=== PATIENT | male | born 1940 | race Caucasian/White ===

== ENCOUNTER 2022-05-17 03:41 | Inpatient (IN) | payer MEDICARE ==
[~2022-05-17] VITALS: Ht 177.8 cm; Wt 91.6 kg
[2022-05-17 04:32] LABS: HEMATOCRIT. 40.4 % (42.0-52.0); HEMOGLOBIN. 13.7 g/dL (14.0-18.0); MEAN CORPUSCULAR VOLUME 91.6 fL (80.0-94.0); PLATELET 334 x1000/uL (130-400); RED BLOOD CELL COUNT 4.41 mill/uL (4.7-6.1); RED CELL DISTRIBUTION WIDTH 13.8 % (11.6-14.6)
[2022-05-17 04:38] LABS: CHLORIDE 104 mEq/L (98-107)
[2022-05-17 04:42] LABS: PROTHROMBIN TIME 10.7 sec (9.6-11.0)
[2022-05-17 05:10] LABS: PLATELET ESTIMATE NORMAL
[2022-05-17] MEDS ORDERED: TAMSULOSIN HCL 0.4MG SR CAPSULE PO ONE (05:45)
[2022-05-17] MEDS ORDERED: SODIUM CHLORIDE 0.9% 1,000 ML IV ONE (05:45)
[2022-05-17] MEDS ORDERED: ONDANSETRON HCL 4MG/2ML INJ IV ONE (05:45)
[2022-05-17] MEDS ORDERED: CEFTRIAXONE 1 G PREMIX 50 ML IV ONE (06:00)
[2022-05-17] MEDS ORDERED: DOCUSATE SODIUM 100MG CAPSULE PO PRN (07:00)
[2022-05-17] MEDS ORDERED: KETOROLAC 15MG/ML VIAL IV PRN (07:00)
[2022-05-17] MEDS ORDERED: ZOLPIDEM TARTRATE 5MG TABLET PO PRN (07:00)
[2022-05-17] MEDS ORDERED: CLONIDINE 0.1MG TABLET PO PRN (07:00)
[2022-05-17] MEDS ORDERED: TRAMADOL 50MG TABLET PO PRN (07:00)
[2022-05-17] MEDS ORDERED: NITROGLYCERIN 0.4MG TABLET SL SL PRN (07:00)
[2022-05-17] MEDS ORDERED: MAGNESIUM/ALUMINUM HYDROXIDE/SIMETHICONE 30ML UDC PO PRN (07:00)
[2022-05-17] MEDS ORDERED: ONDANSETRON HCL 4MG/2ML INJ IV PRN (07:00)
[2022-05-17 07:31] LABS: ETHANOL BLOOD < 10 mg/dL; TOTAL IRON BINDING CAPACITY 292 ug/dL (250-450)
[2022-05-17] MEDS ORDERED: NALOXONE HCL 0.4MG/ML VIAL IV PRN (07:45)
[2022-05-17 07:50] LABS: FOLIC ACID (FOLATE) SERUM 11.3 ng/mL (>5.38)
[2022-05-17] MEDS ORDERED: PIPERACILLIN/TAZ 3.375G PREMIX 50 ML IV SCH (08:00)
[2022-05-17 09:30] VITALS: BP_SYST 126; BP_DIAS 25; BP_DIAS 65
[2022-05-17 12:00] VITALS: BP 135/72
[2022-05-17 12:16] LABS: CLARITY URINE CLEAR (CLEAR); COLOR URINE YELLOW (YELLOW); KETONES URINE TRACE (NEGATIVE); LEUKOCYTE ESTERASE URINE NEGATIVE (NEGATIVE); NITRITE URINE NEGATIVE (NEGATIVE); OCCULT BLOOD URINE 1+ (NEGATIVE); PROTEIN URINE NEGATIVE (NEGATIVE); SPECIFIC GRAVITY URINE 1.017 (1.005-1.030); UROBILINOGEN URINE 0.2 E.U./dL (0.2-1.0)
[2022-05-17] MEDS: TAMSULOSIN HCL 0.4MG SR CAPSULE PO SCH (12:24)
[2022-05-17] MEDS: FAMOTIDINE 20MG TABLET PO SCH ×2 (12:24→21:18)
[2022-05-17] MEDS: LISINOPRIL 20MG TABLET PO SCH ×2 (12:24→21:00)
[2022-05-17] MEDS: ENOXAPARIN 40MG/0.4ML SYR SUBCUT SCH (12:25)
[2022-05-17 12:40] LABS: *AMPHETAMINES SCREEN URINE NEGATIVE (NEGATIVE); *BARBITURATES SCREEN URINE NEGATIVE (NEGATIVE); *BENZODIAZEPINES SCREEN URINE NEGATIVE (NEGATIVE); *COCAINE SCREEN URINE NEGATIVE (NEGATIVE); CANNABINOID URINE SCREEN NEGATIVE (NEGATIVE); METHADONE URINE SCREEN NEGATIVE (NEGATIVE); OPIATES URINE SCREEN NEGATIVE (NEGATIVE); PHENCYCLIDINE URINE SCREEN NEGATIVE (NEGATIVE)
[2022-05-17 16:00] VITALS: BP 110/58
[2022-05-17 20:00] VITALS: BP 101/51
[2022-05-17] MEDS: DEXT 5%/LACTATED RINGERS 1,000 ML IV SCH (20:01)
[2022-05-17] MEDS: PIPERACILLIN/TAZOBACTAM 3.375G in DEXT 5% WATER 50ML IV SCH (21:04)
[2022-05-18] VITALS: BP 95/48
[2022-05-18 04:00] VITALS: BP 116/53
[2022-05-18] MEDS: PIPERACILLIN/TAZOBACTAM 3.375G in DEXT 5% WATER 50ML IV SCH ×3 (06:05→21:04)
[2022-05-18 07:22] LABS: BASOPHILS % 0.5 % (0.0-2.0); EOSINOPHILS % 3.1 % (0.0-5.0); HEMATOCRIT. 37.1 % (42.0-52.0); HEMOGLOBIN. 12.4 g/dL (14.0-18.0); LYMPHOCYTES % 12.4 % (20.0-50.0); MEAN PLATELET VOLUME 8.6 fl (7.4-10.4); MONOCYTES % 8.6 % (2.0-8.0); NEUTROPHILS % 75.4 % (40.0-76.0); PLATELET 270 x1000/uL (130-400); RED BLOOD CELL COUNT 3.99 mill/uL (4.7-6.1); RED CELL DISTRIBUTION WIDTH 13.6 % (11.6-14.6)
[2022-05-18 07:29] LABS: CHLORIDE 108 mEq/L (98-107)
[2022-05-18 08:00] VITALS: BP 146/63
[2022-05-18] MEDS: ENOXAPARIN 40MG/0.4ML SYR SUBCUT SCH (08:00)
[2022-05-18] MEDS: TAMSULOSIN HCL 0.4MG SR CAPSULE PO SCH (09:00)
[2022-05-18] MEDS: FAMOTIDINE 20MG TABLET PO SCH ×2 (09:00→21:04)
[2022-05-18] MEDS: LISINOPRIL 20MG TABLET PO SCH ×2 (09:00→21:04)
[2022-05-18] MEDS: DEXT 5%/LACTATED RINGERS 1,000 ML IV SCH ×2 (09:40→23:00)
[2022-05-18 11:53] VITALS: BP 131/61
[2022-05-18] MEDS ORDERED: PROPOFOL 200MG/20ML VIAL IV ONE (12:13)
[2022-05-18] MEDS ORDERED: FENTANYL CITRATE/PF 50MCG/ML 2ML VIAL ONE (12:13)
[2022-05-18] MEDS ORDERED: GLYCOPYRROLATE 0.2 MG/ML 2ML VIAL ONE (13:36)
[2022-05-18] MEDS ORDERED: ONDANSETRON HCL 4MG/2ML INJ IV PRN (14:30)
[2022-05-18] MEDS ORDERED: FENTANYL CITRATE/PF 50MCG/ML 2ML VIAL IV PRN (14:30)
[2022-05-18] MEDS ORDERED: HYDROMORPHONE HCL/PF 2MG/ML CPJ IV PRN (14:30)
[2022-05-18] MEDS ORDERED: MEPERIDINE HCL/PF 25MG/ML CPJ IV PRN (15:30)
[2022-05-18 20:00] VITALS: BP 108/58
[2022-05-19] VITALS: BP 126/62
[2022-05-19 04:00] VITALS: BP 122/51
[2022-05-19] MEDS: PIPERACILLIN/TAZOBACTAM 3.375G in DEXT 5% WATER 50ML IV SCH ×3 (05:21→20:53)
[2022-05-19] MEDS: GUAIFENESIN 200MG/10ML SUGAR FREE UDC PO PRN ×4 (05:51→20:56)
[2022-05-19 06:27] LABS: HEMATOCRIT 36.2 % (42.0-52.0); HEMOGLOBIN 12.2 g/dL (14.0-18.0); MEAN CORPUSCULAR HEMOGLOBIN 31.4 pg (28.0-32.0); MEAN CORPUSCULAR VOLUME 92.7 fL (80.0-94.0); PLATELET 260 x1000/uL (130-400); RED CELL DISTRIBUTION WIDTH 13.8 % (11.6-14.6)
[2022-05-19 06:50] LABS: CHLORIDE 108 mEq/L (98-107)
[2022-05-19 08:00] VITALS: BP 140/68
[2022-05-19] MEDS: TAMSULOSIN HCL 0.4MG SR CAPSULE PO SCH (09:33)
[2022-05-19] MEDS: ENOXAPARIN 40MG/0.4ML SYR SUBCUT SCH (09:33)
[2022-05-19] MEDS: FAMOTIDINE 20MG TABLET PO SCH ×2 (09:33→20:53)
[2022-05-19] MEDS: LISINOPRIL 20MG TABLET PO SCH ×2 (09:33→20:53)
[2022-05-19 12:00] VITALS: BP 120/59
[2022-05-19] MEDS: DEXT 5%/LACTATED RINGERS 1,000 ML IV SCH (13:32)
[2022-05-19 16:00] VITALS: BP 130/69
[2022-05-19 20:00] VITALS: BP 132/67
[2022-05-20] VITALS: BP 138/75
[2022-05-20] MEDS: IPRATROPIUM/ALBUTEROL 0.5-3(2.5)MG/3ML NEB NEB PRN ×2 (00:17→10:31)
[2022-05-20] MEDS: GUAIFENESIN 200MG/10ML SUGAR FREE UDC PO PRN ×4 (01:18→21:03)
[2022-05-20] MEDS: DEXT 5%/LACTATED RINGERS 1,000 ML IV SCH ×2 (01:40→14:00)
[2022-05-20 04:00] VITALS: BP 127/56
[2022-05-20] MEDS: PIPERACILLIN/TAZOBACTAM 3.375G in DEXT 5% WATER 50ML IV SCH ×3 (05:25→21:04)
[2022-05-20 08:00] VITALS: BP 138/67
[2022-05-20] MEDS: FAMOTIDINE 20MG TABLET PO SCH ×2 (09:09→21:04)
[2022-05-20] MEDS: TAMSULOSIN HCL 0.4MG SR CAPSULE PO SCH (09:09)
[2022-05-20] MEDS: ENOXAPARIN 40MG/0.4ML SYR SUBCUT SCH (09:09)
[2022-05-20] MEDS: LISINOPRIL 20MG TABLET PO SCH ×2 (09:09→20:14)
[2022-05-20 12:00] VITALS: BP 137/62
[2022-05-20 16:00] VITALS: BP 118/54
[2022-05-20] MEDS: ACETAMINOPHEN 325MG TABLET PO PRN (16:28)
[2022-05-20 20:00] VITALS: BP 91/49
[2022-05-21] VITALS: BP 134/68
[2022-05-21 04:00] VITALS: BP 153/89
[2022-05-21] MEDS: DEXT 5%/LACTATED RINGERS 1,000 ML IV SCH ×2 (04:20→16:55)
[2022-05-21] MEDS: PIPERACILLIN/TAZOBACTAM 3.375G in DEXT 5% WATER 50ML IV SCH ×3 (05:06→21:47)
[2022-05-21] MEDS: GUAIFENESIN 200MG/10ML SUGAR FREE UDC PO PRN ×3 (05:07→16:58)
[2022-05-21] MEDS: ACETAMINOPHEN 325MG TABLET PO PRN ×2 (05:07→13:01)
[2022-05-21 08:00] VITALS: BP 128/68
[2022-05-21] MEDS: FAMOTIDINE 20MG TABLET PO SCH ×2 (10:07→21:48)
[2022-05-21] MEDS: TAMSULOSIN HCL 0.4MG SR CAPSULE PO SCH (10:08)
[2022-05-21] MEDS: LISINOPRIL 20MG TABLET PO SCH ×2 (10:11→21:48)
[2022-05-21] MEDS: ENOXAPARIN 40MG/0.4ML SYR SUBCUT SCH (10:11)
[2022-05-21 12:00] VITALS: BP 152/57
[2022-05-21 16:00] VITALS: BP 124/60
[2022-05-21 20:00] VITALS: BP 130/70
[2022-05-22] VITALS: BP 140/75
[2022-05-22 04:00] VITALS: BP 138/72
[2022-05-22] MEDS: DEXT 5%/LACTATED RINGERS 1,000 ML IV SCH (05:56)
[2022-05-22] MEDS: PIPERACILLIN/TAZOBACTAM 3.375G in DEXT 5% WATER 50ML IV SCH (05:56)
[2022-05-22 08:00] VITALS: BP 104/64
[2022-05-22] MEDS ORDERED: LEVO750T46 MT (08:53)
[2022-05-22] MEDS: TAMSULOSIN HCL 0.4MG SR CAPSULE PO SCH (09:35)
[2022-05-22] MEDS: LISINOPRIL 20MG TABLET PO SCH (09:35)
[2022-05-22] MEDS: FAMOTIDINE 20MG TABLET PO SCH (09:35)
[2022-05-22] MEDS: ENOXAPARIN 40MG/0.4ML SYR SUBCUT SCH (09:36)
[2022-05-22 12:00] VITALS: BP 154/69
[2022-05-22] MEDS: ACETAMINOPHEN 325MG TABLET PO PRN (12:53)
[2022-05-22 13:31] VITALS: BP 154/69
== END 2022-05-22 16:41 | disposition home health service (06) | DRG 694 ==
LOC: ER 03:41 → 6WST 05:44 → SUPCPDRO 06:56 → ENRESERV 07:04
PROVIDERS: ADMIT Internal Medicine; ATTEND Internal Medicine
PROC: 0TC68ZZ Extirpation of Matter from Right Ureter, Via Natural or Artificial Opening Endoscopic (ICD-10-PCS; principal; 2022-05-18)
DX: N13.2 Hydronephrosis with renal and ureteral calculous obstruction (principal); N13.0 Hydronephrosis with ureteropelvic junction obstruction; K57.90 Diverticulosis of intestine, part unspecified, without perforation or abscess without bleeding; Z20.822 Contact with and (suspected) exposure to COVID-19; I10 Essential (primary) hypertension; K59.00 Constipation, unspecified; N40.0 Benign prostatic hyperplasia without lower urinary tract symptoms; E78.00 Pure hypercholesterolemia, unspecified; L82.1 Other seborrheic keratosis; E78.5 Hyperlipidemia, unspecified; K64.8 Other hemorrhoids; Z87.442 Personal history of urinary calculi; R50.9 Fever, unspecified
CPT/HCPCS: 36415; 74018; 74176; 76000; 80048; 80053; 80305; 80320; 81003; 82360; 82607; 82746; 83540; 83550; 83735; 84100; 84443; 85025; 85027; 86850; 86900; 87426; 88300; 93970; 94640; 94664; 97161; 97165; 99285; C1769; J0696; J1650; J2175; J2405; J2543; J2704; J3010; J3490; J7030; J7060; G0480

== ENCOUNTER 2022-05-30 07:16 | Emergency (ER) | payer MEDICARE ==
[~2022-05-30] VITALS: Ht 177.8 cm; Wt 82.0 kg
[~2022-05-30 07:16] MED LIST: LEVO750T46 MT
[2022-05-30] MEDS ORDERED: SODIUM CHLORIDE 0.9% 1,000 ML IV ONE (07:30)
[2022-05-30 08:30] VITALS: BP 135/67
[2022-05-30 09:47] LABS: BASOPHILS % 0.7 % (0.0-2.0); HEMATOCRIT. 36.7 % (42.0-52.0); HEMOGLOBIN. 12.2 g/dL (14.0-18.0); MEAN CORPUSCULAR HEMOGLOBIN 30.6 pg (28.0-32.0); MEAN CORPUSCULAR VOLUME 91.9 fL (80.0-94.0); MEAN PLATELET VOLUME 8.2 fl (7.4-10.4); MONOCYTES % 8.4 % (2.0-8.0); NEUTROPHILS % 81.9 % (40.0-76.0); PLATELET 421 x1000/uL (130-400); RED CELL DISTRIBUTION WIDTH 13.6 % (11.6-14.6)
[2022-05-30 09:49] LABS: CLARITY URINE CLEAR (CLEAR); COLOR URINE YELLOW (YELLOW); KETONES URINE NEGATIVE (NEGATIVE); LEUKOCYTE ESTERASE URINE NEGATIVE (NEGATIVE); NITRITE URINE NEGATIVE (NEGATIVE); OCCULT BLOOD URINE NEGATIVE (NEGATIVE); PH URINE 5.5 (4.5-8.0); PROTEIN URINE TRACE (NEGATIVE); SPECIFIC GRAVITY URINE 1.022 (1.005-1.030); UROBILINOGEN URINE 0.2 E.U./dL (0.2-1.0)
[2022-05-30 09:57] LABS: CHLORIDE 108 mEq/L (98-107)
[2022-05-30] MEDS ORDERED: DOCU-138 MT (10:29)
== END 2022-05-30 12:08 | disposition home or self-care (01) ==
LOC: ER 07:36
DX: R10.9 Unspecified abdominal pain (principal); E78.00 Pure hypercholesterolemia, unspecified; I10 Essential (primary) hypertension
CPT/HCPCS: 36415; 74176; 80053; 81003; 83690; 85025; 96360; 96361; 99284; J7030

== ENCOUNTER 2022-11-28 23:23 | Emergency (ER) | payer MEDICARE ==
[~2022-11-28] VITALS: Ht 180.3 cm; Wt 91.0 kg
[~2022-11-28 23:23] MED LIST changes: +DOCU-138 MT; -LEVO750T46 MT; +LEVO750T68 MT
[2022-11-29 00:23] LABS: HEMOGLOBIN. 11.6 g/dL (14.0-18.0); MEAN CORPUSCULAR HEMOGLOBIN 31.3 pg (28.0-32.0); MEAN CORPUSCULAR VOLUME 91.3 fL (80.0-94.0); MEAN PLATELET VOLUME 7.9 fl (7.4-10.4); PLATELET 331 x1000/uL (130-400); RED BLOOD CELL COUNT 3.72 mill/uL (4.7-6.1); RED CELL DISTRIBUTION WIDTH 14.5 % (11.6-14.6)
[2022-11-29 00:25] LABS: CHLORIDE 105 mEq/L (98-107)
[2022-11-29 00:33] LABS: BG BASE EXCESS 0.8 mmol/L (-2.0-2.0); BG CARBOXYHEMOGLOBIN 0.7 % (0.5-1.5); BG DEOXYHEMOGLOBIN 3.7 % (0.0-5.0); BG FRACTION INSPIRED OXYGEN 21; BG METHEMOGLOBIN 0.2 % (0.0-1.5); BG OXYGEN SATURATION 96.3 % (92.0-98.5); BG OXYHEMOGLOBIN 95.4 % (94.0-97.0); BG PCO2 38.6 mmHg (35.0-45.0); BG PH 7.429 (7.350-7.450); BG PO2 84.7 mmHg (75.0-100.0); BG SAMPLE SITE RIGHT RADIAL; BG TOTAL HEMOGLOBIN 12.6 g/dL (12.0-18.0); BG VENT MODE ROOM AIR
[2022-11-29 01:54] LABS: PLATELET ESTIMATE NORMAL
[2022-11-29] MEDS ORDERED: AZITHROMYCIN 500 MG TABLET PO ONE (03:15)
[2022-11-29] MEDS ORDERED: BENZ100C86 MT (03:55)
[2022-11-29] MEDS ORDERED: AZIT250T12 MT (03:55)
[2022-11-29] MEDS ORDERED: METO-539 MT (04:20)
[2022-11-29 08:10] VITALS: BP 142/76
== END 2022-11-29 08:11 | disposition home or self-care (01) ==
LOC: ER 23:43
DX: B34.9 Viral infection, unspecified (principal); I10 Essential (primary) hypertension; Z20.822 Contact with and (suspected) exposure to COVID-19
CPT/HCPCS: 36415; 36600; 71045; 80053; 82375; 82805; 83880; 84484; 85025; 87426; 87804; 93005; 99285; C9803